=== PATIENT | female | born 1960 | race Caucasian/White ===

== ENCOUNTER → 2016-10-15 | Outpatient (CLI) | payer BC | END | disposition home or self-care (01) | LOC: GMA 12:39 | PROVIDERS: ATTEND Nurse Practitioner Acute Care | DX: E03.9 Hypothyroidism, unspecified (principal) ==

== ENCOUNTER → 2017-06-03 | Outpatient (CLI) | payer BC ==
--- NOTE | 2017-06-06 09:24 | MRI ---
Study: MRI of the Left Knee. Indication: TEAR OF MEDIAL MENISCUS Technique: Multiplanar, multi sequence MRI of the left knee was obtained without intravenous contrast. Comparison: None. FINDINGS: Linear increased PD signal ACL indicating sequela remote interstitial injury. Slight attenuation noted without acute full-thickness tear. PCL, MCL, and lateral collateral ligament complex intact. Degenerative signal throughout the medial meniscus without well-defined tear defect. The anterior horn/root lateral meniscus is markedly degenerated/attenuated with irregular degenerative undersurface and radial free edge tearing suspected. Mild intrasubstance cystic change noted at the junction of the anterior horn and body. Patchy areas of grade 3/4 chondrosis noted throughout the lateral compartment and to a lesser extent the medial compartment. Patellofemoral extensor mechanism intact. Mild lateral patellar tilt and subluxation. TT-TG distance measures 22 mm. Grade 4 chondral fissuring and subchondral marrow change central aspect lateral patellar facet. Patchy grade 2-3 chondrosis throughout the remainder of the compartment. Moderate size knee effusion. No acute fracture. Small to moderate tricompartmental joint line osteophytes. IMPRESSION: Remote interstitial injury ACL without acute tear. Degenerative signal medial meniscus without tear. Degenerated/attenuated anterior horn/root lateral meniscus as above. Tricompartmental chondrosis with multifocal areas of grade 3/4 chondral loss as above. Moderate size knee effusion. Electronically signed by: Oswald Melton MD 06/06/2017 9:22 AM CDT
== END | disposition home or self-care (01) ==
LOC: MRI 12:54
PROVIDERS: ATTEND Family Medicine
DX: M17.2 Bilateral post-traumatic osteoarthritis of knee (principal); S83.242D Other tear of medial meniscus, current injury, left knee, subsequent encounter

== ENCOUNTER → 2017-06-03 | Outpatient (CLI) | payer BC | END | disposition home or self-care (01) | LOC: GMA 14:24 | PROVIDERS: ATTEND Nurse Practitioner Acute Care | DX: E03.9 Hypothyroidism, unspecified (principal) ==

== ENCOUNTER → 2017-07-07 | Outpatient (CLI) | payer BC | END | disposition home or self-care (01) | LOC: GMA 14:34 | PROVIDERS: ATTEND Physician Assistant | DX: N30.00 Acute cystitis without hematuria (principal) ==

== ENCOUNTER → 2017-10-18 | Outpatient (CLI) | payer BC | LOC: GMA 14:14 | PROVIDERS: ATTEND Nurse Practitioner Acute Care | DX: E03.9 Hypothyroidism, unspecified (principal) ==

== ENCOUNTER → 2017-11-30 | Outpatient (CLI) | payer BC | LOC: GMALS 14:08 | PROVIDERS: ATTEND Nurse Practitioner Acute Care | DX: E03.9 Hypothyroidism, unspecified (principal) ==

== ENCOUNTER → 2018-06-15 | Outpatient (CLI) | payer BC | LOC: GMALS 14:23 | PROVIDERS: ATTEND Nurse Practitioner Acute Care | DX: E03.9 Hypothyroidism, unspecified (principal) ==

== ENCOUNTER → 2018-06-19 | Outpatient (CLI) | payer BC | LOC: GMALS 14:47 | PROVIDERS: ATTEND Nurse Practitioner Acute Care | DX: E03.9 Hypothyroidism, unspecified (principal) ==

== ENCOUNTER → 2018-06-22 | Outpatient (CLI) | payer BC ==
--- NOTE | 2018-06-22 17:33 | US ---
EXAM DESCRIPTION: Abdomen,Complete CLINICAL HISTORY: GENERALIZED ABD PN COMPARISON: None Available. TECHNIQUE: Complete abdominal ultrasound FINDINGS: Visualized portions of the pancreas are unremarkable. No peripancreatic fluid. Bowel gas obscures some areas. Normal caliber of the aorta. Normal appearance of the inferior vena cava. Liver parenchyma is homogeneous in texture with increased echogenicity consistent with diffuse hepatic steatosis. No liver mass or intrahepatic bile duct dilatation. No liver surface irregularity. Normal appearance of hepatic veins and portal vein. Gallbladder appears normal with no intraluminal stones. No gallbladder wall thickening. Common bile duct is normal in caliber measuring 5.9 mm. The right kidney measures 10.6 cm in length. Normal renal cortical echogenicity. The renal cortical thickness appears normal. No right renal mass, shadowing stone or cyst. There is no hydronephrosis. Spleen is normal in size. No focal splenic lesion. The left kidney measures 11.1 cm in length. Normal renal cortical echogenicity. The renal cortical thickness appears normal. No left renal mass or shadowing stone. Small cyst in the lower left kidney measures 1.7 cm. There is no hydronephrosis. IMPRESSION: Hyperechoic liver consistent with diffuse hepatic steatosis. Electronically signed by: Jeison Ortiz MD 06/22/2018 5:32 PM CDT
== END ==
LOC: US 09:54
PROVIDERS: ATTEND Nurse Practitioner Acute Care
DX: R10.84 Generalized abdominal pain (principal)

== ENCOUNTER → 2018-07-04 | Outpatient (CLI) | payer BC | LOC: GMALS 14:44 | PROVIDERS: ATTEND Nurse Practitioner Acute Care | DX: K76.0 Fatty (change of) liver, not elsewhere classified (principal) ==

== ENCOUNTER → 2018-08-01 | Outpatient (CLI) | payer BC | LOC: GMALS 14:33 | PROVIDERS: ATTEND Nurse Practitioner Acute Care | DX: E03.9 Hypothyroidism, unspecified (principal) ==

== ENCOUNTER → 2019-03-07 | Outpatient (CLI) | payer BC | LOC: GMAJ 14:54 | PROVIDERS: ATTEND Family Medicine | DX: E03.9 Hypothyroidism, unspecified (principal) ==

== ENCOUNTER → 2019-10-02 | Outpatient (CLI) | payer BC | LOC: GMALS 14:20 | PROVIDERS: ATTEND Nurse Practitioner Acute Care | DX: E03.9 Hypothyroidism, unspecified (principal) ==

== ENCOUNTER → 2020-03-28 | Outpatient (CLI) | payer BC | LOC: GMAJ 10:33 | PROVIDERS: ATTEND Family Medicine | DX: E03.8 Other specified hypothyroidism (principal); Z79.899 Other long term (current) drug therapy ==